=== PATIENT | male | born 1985 | race Caucasian/White ===

== ENCOUNTER 2017-10-27 18:16 | Emergency (ER) | payer SELFPAY ==
[2017-10-27 18:52] VITALS: BP 134/68
--- NOTE | 2017-10-27 19:26 | ER Document Report ---
HPI - HPI Pain Level: 2 Notes: Patient is a 32-year-old male who presents to the ED complaining of nasal congestion/discharge, dry nonproductive cough, fever, body ache 2 days. Patient states that she is still eating and drinking without difficulties, but does have a decreased p.o. intake. He is still urinating normally having normal bowel movements. Patient has been using some [id number] meds for symptoms. He denies any significant past medical history including cardiopulmonary history and immunocompromised conditions. Pt is a smoker, but denies any IV drug use. Patient requesting work note. Denies any headache, neck pain, sore throat, chest pain, palpitations, syncope, shortness of breath, wheeze, dyspnea, abdominal pain, nausea/vomiting/diarrhea, urinary retention, dysuria, hematuria, or rash. - ROS Systems Reviewed and Negative: Yes All other systems reviewed and negative - EENT EENT: REPORTS: Sore Throat - RESPIRATORY Respiratory: REPORTS: Coughing Past Medical History - Social History Smoking Status: Current Every Day Smoker Chew tobacco use (# tins/day): No Frequency of alcohol use: None Drug Abuse: Marijuana Family History: Reviewed & Not Pertinent Patient has suicidal ideation: No Patient has homicidal ideation: No Renal/ Medical History: Denies: Hx Peritoneal Dialysis - Immunizations Hx Diphtheria, Pertussis, Tetanus Vaccination: No Vertical Provider Document - CONSTITUTIONAL Agree With Documented VS: Yes Notes: PHYSICAL EXAMINATION: GENERAL: Well-appearing, well-nourished and in no acute distress. A&Ox4. Answers questions appropriately. Moves comfortably w/o notable distress HEAD: Atraumatic, normocephalic. EYES: Pupils equal round and reactive to light, extraocular movements intact, sclera anicteric, conjunctiva are normal. ENT: EAC clear b/l. TM's intact b/l without erythema, fluid, or perforation. Nares patent and with clear discharge. oropharynx no erythema without exudates. No tonsilar hypertrophy without erythema or exudate. No palatine shift. Uvula midline. No tongue protrusion. No drooling, hoarseness, or airway compromise. Moist mucous membranes. No sinus tenderness. NECK: Normal range of motion, supple without lymphadenopathy. No rigidity/ meningismus. LUNGS: Breath sounds clear to auscultation bilaterally and equal. No wheezes rales or rhonchi. No retractions HEART: Regular rate and rhythm without murmurs, rubs, gallops. ABDOMEN: Soft, nontender, nondistended abdomen. No guarding, no rebound. No masses appreciated. Normal bowel sounds present. No CVA tenderness bilaterally. No hepatosplenomegaly. NEUROLOGICAL: Normal speech, normal gait. Normal sensory, motor exams PSYCH: Normal mood, normal affect. SKIN: Warm, Dry, normal turgor, no rashes or lesions noted. - INFECTION CONTROL TRAVEL OUTSIDE OF THE [place] IN LAST 30 DAYS: No - RESPIRATORY O2 Sat by Pulse Oximetry: 95 Course - Re-evaluation Re-evalutation: 10/27/17 19:32 Patient is an afebrile, well-hydrated, 32-year-old male who presents ED with acute URI, suspect influenza. Vitals are stable. PE is otherwise unremarkable. No labs or imaging warranted at this time based on H&P. Patient has no significant cardiopulmonary or immunocompromised medical conditions. Patient's lungs are clear to auscultation bilaterally without tachycardia, hypoxia, or tachypnea. Patient is tolerating p.o. without any difficulties. I thoroughly reviewed the risks and benefits of the use of Tamiflu, and patient declined due to the cost having no insurance and his previous personal experience from a friend who was on it. Low suspicion for any meningitis, sepsis, peritonsillar/pharyngeal abscess, respiratory compromise, severe dehydration, or other emergent systemic condition at this time. Patient is aware this condition can change from initial presentation and he needs to monitor symptoms closely. Conservative measures otherwise for symptoms. Recheck with your PCM in 3-5 days. Return to the ED with any worsening/ concerning symptoms otherwise as reviewed in discharge. Patient is in agreement. - Vital Signs Vital signs: Temp Pulse Resp BP Pulse Ox 97.7 F 104 H 22 H 134/68 H 95 10/27/17 18:50 10/27/17 18:50 10/27/17 18:50 10/27/17 18:50 10/27/17 18:50 Discharge - Discharge Clinical Impression: Influenza Condition: Stable Disposition: HOME, SELF-CARE Instructions: Influenza ([facility]) Additional Instructions: Maintain adequate fluid intake Take meds as directed tylenol/ibuprofen as needed over the counter cold medication as needed for symptoms Humidified air may help Wash your hands regularly Wear a mask when coughing F/u: with your PCM in 3-5 days for a recheck Return to the ED with any fever, worsening pain, chest pain, palpitations, syncope, worsening WAHL, neck pain/stiffness, shortness of breath, wheezing, drooling, trouble swallowing/breathing, abdominal pain, n/v/d, rash, or worsening/concerning symptoms otherwise. Forms: Elevated Blood Pressure, Smoking Cessation Education, Return to Work Referrals: [facility] [Provider Group] - Follow up as needed [facility] [Provider Group] - Follow up as needed
== END 2017-10-27 19:43 | disposition home or self-care (01) ==
LOC: ER 18:16
DX: J11.1 Influenza due to unidentified influenza virus with other respiratory manifestations (principal); R05 Cough; R50.9 Fever, unspecified; F17.200 Nicotine dependence, unspecified, uncomplicated
CPT/HCPCS: 99283

== ENCOUNTER 2018-03-16 23:54 | Inpatient (IN) | payer SELFPAY ==
[2018-03-17] MEDS ORDERED: ONDANSETRON 4 MG TAB.RAPDIS PO ONE (01:10)
[2018-03-17] MEDS ORDERED: DIAZEPAM INJ 10 MG/2 ML DISP.SYRIN IV ONE ×2 (01:10→01:54)
[2018-03-17] MEDS ORDERED: NORMAL SALINE 1000 ML 2,000 ML IV ONE (01:10)
--- NOTE | 2018-03-17 01:13 | ER Document Report ---
ED Medical Screen (RME) - General Chief Complaint: Nausea/Vomiting Stated Complaint: VOMITING,CRAMPING Time Seen by Provider: 03/17/18 01:04 Mode of Arrival: Ambulatory Information source: Patient Notes: Patient states that that he was working out in the heat all day and started to become dizzy at work. Patient states that he passed out while at work around 4 PM today. Patient reports nausea and vomiting, vomiting multiple episodes today. Patient complains of hot and cold chills. Patient complains of generalized body aches and muscle cramps. I have greeted and performed a rapid initial assessment of this patient. A comprehensive ED assessment and evaluation of the patient, analysis of test results and completion of the medical decision making process will be conducted by additional ED providers. TRAVEL OUTSIDE OF THE [place] IN LAST 30 DAYS: No - Related Data Allergies/Adverse Reactions: No Known Allergies Allergy (Verified 03/16/18 23:55) Past Medical History Renal/ Medical History: Denies: Hx Peritoneal Dialysis - Immunizations Hx Diphtheria, Pertussis, Tetanus Vaccination: No Physical Exam - Vital signs Vitals: Temp Pulse Resp BP Pulse Ox 97.9 F 84 20 132/81 H 97 03/16/18 23:58 03/16/18 23:58 03/16/18 23:58 03/16/18 23:58 03/16/18 23:58 - General General appearance: Appears well, Alert In distress: Mild Notes: Patient with tenderness generalized body worse to bilateral thigh muscles Course - Vital Signs Vital signs: Temp Pulse Resp BP Pulse Ox 97.9 F 84 20 132/81 H 97 03/16/18 23:58 03/16/18 23:58 03/16/18 23:58 03/16/18 23:58 03/16/18 23:58
--- NOTE | 2018-03-17 01:49 | ER Document Report ---
ED General - General Chief Complaint: Nausea/Vomiting Stated Complaint: VOMITING,CRAMPING Time Seen by Provider: 03/17/18 01:04 Mode of Arrival: Ambulatory Notes: Patient is a 32-year-old male who presents with complaint of feeling dehydrated and having cramping throughout his muscles. Patient says he works in a hot environment and started feel very lightheaded and dehydrated and start vomiting and did pass out. He said he never had a headache. Denies any chest pain or shortness of breath. He says throughout the day he has been having cramping in his muscles. He continues have some vomiting therefore came to the ER. He did titrate and drink the Pedialyte at home but vomited it. He denies any current abdominal pain. Denies any recent sick contacts. Denies any fevers. TRAVEL OUTSIDE OF THE [place] IN LAST 30 DAYS: No - Related Data Allergies/Adverse Reactions: No Known Allergies Allergy (Verified 03/16/18 23:55) Past Medical History - General Information source: Patient - Social History Smoking Status: Never Smoker Frequency of alcohol use: None Drug Abuse: Marijuana Family History: Reviewed & Not Pertinent Renal/ Medical History: Denies: Hx Peritoneal Dialysis - Immunizations Hx Diphtheria, Pertussis, Tetanus Vaccination: No Review of Systems - Review of Systems Notes: My Normal Review Basic REVIEW OF SYSTEMS: CONSTITUTIONAL : Denies fever, chills, or sweats. Denies recent illness. EENT: Denies eye, ear, throat, or mouth pain or symptoms. Denies nasal or sinus congestion. CARDIOVASCULAR: Denies chest pain. RESPIRATORY: Denies cough, cold, or chest congestion. Denies shortness of breath, difficulty breathing, or wheezing. GASTROINTESTINAL: Denies abdominal pain. Vomiting GENITOURINARY: Denies difficulty urinating, painful urination, burning, frequency, or blood in urine. MUSCULOSKELETAL: Body aches and muscle cramps SKIN: Denies rash or skin lesions. NEUROLOGICAL: Syncopal episode. Denies headache. Denies weakness or paralysis or loss of use of either side. Denies problems with gait or speech. Denies sensory or motor loss. ALL OTHER SYSTEMS REVIEWED AND NEGATIVE. Physical Exam - Vital signs Vitals: Temp Pulse Resp BP Pulse Ox 97.9 F 84 20 132/81 H 97 03/16/18 23:58 03/16/18 23:58 03/16/18 23:58 03/16/18 23:58 03/16/18 23:58 - Notes Notes: General Appearance: Well nourished, alert, cooperative, no acute distress, no obvious discomfort. Vitals: reviewed, See vital signs table. Head: no swelling or tenderness to the head Eyes: PERRL, EOMI, Conjuctiva clear Mouth: No decreasd moisture Lungs: No wheezing, No rales, No rhonci, No accessory muscle use, good air exchange bilaterally. Heart: Normal rate, Regular rythm, No murmur, no rub Abdomen: Normal BS, soft, No rigidity, No abdominal tenderness, No guarding, no rebound, no abdominal masses, no organomegaly Extremities: strength 5/5 in all extremities, good pulses in all extremities, no swelling or tenderness in the extremities, no edema. Skin: warm, dry, appropriate color, no rash Neuro: speech clear, oriented x 3, normal affect, responds appropriately to questions. Course - Re-evaluation Re-evalutation: 03/17/18 03:08 Patient has acute renal failure from what appears to be dehydration. He is currently receiving IV fluids. His elevated protein his chemistry panel. He has what appears to be hemoconcentration with leukocytosis with CBC. Due to his acute renal failure I think is appropriate to admit him with IV fluids to make sure his renal function returns to normal. Patient is agreeable to this. I did speak with the hospitalist, Dr. Amador, who agrees to admit the patient. Dictation of this chart was performed using voice recognition software; therefore, there may be some unintended grammatical errors. - Vital Signs Vital signs: Temp Pulse Resp BP Pulse Ox 97.9 F 84 20 132/81 H 97 03/16/18 23:58 03/16/18 23:58 03/16/18 23:58 03/16/18 23:58 03/16/18 23:58 - Laboratory Result Diagrams: 03/17/18 02:02 03/17/18 02:02 Laboratory results interpreted by me: 03/17/18 03/17/18 02:02 02:02 WBC 23.4 H RBC 5.96 H Hgb 18.1 H Hct 51.4 H RDW 14.1 H Seg Neuts % (Manual) 94 H Lymphocytes % (Manual) 1 L Abs Neuts (Manual) 22.0 H Abs Lymphs (Manual) 0.2 L Chloride 91 L Anion Gap 26 H BUN 27 H Creatinine 3.77 H Est GFR ( Amer) 23 L Est GFR (Non-Af Amer) 19 L Glucose 147 H Calcium 11.6 H Direct Bilirubin 0.7 H Creatine Kinase 481 H Total Protein 10.4 H Albumin > 6.0 H - EKG Interpretation by Me Additional EKG results interpreted by me: 03/17/18 01:48 EKG is reviewed and interpreted by me. EKG shows sinus rhythm with a rate of [address] segment elevation or depression. No ischemic T-wave inversions. [place] interval is within normal range. QRS duration and QTc intervals are slightly prolonged. Discharge - Discharge Clinical Impression: Dehydration Acute renal failure Qualifiers: Acute renal failure type: unspecified Qualified Code(s): N17.9 - Acute kidney failure, unspecified Leukocytosis Qualifiers: Leukocytosis type: unspecified Qualified Code(s): D72.829 - Elevated white blood cell count, unspecified Condition: Stable Disposition: ADMITTED OBSERVATION Admitting Provider: Hospitalist Unit Admitted: Medical Floor
[2018-03-17 02:19] LABS: HEMATOCRIT 51.4 % (37.9-51.0); HEMOGLOBIN 18.1 g/dL (13.5-17.0); MEAN CORPUSCULAR HEMOGLOBIN 30.3 pg (27.0-33.4); MEAN CORPUSCULAR HGB CONC 35.2 g/dL (32.0-36.0); MEAN CORPUSCULAR VOLUME 86 fl (80-97); PLATELET COUNT 434 10^3/uL (150-450); RED BLOOD COUNT 5.96 10^6/uL (4.35-5.55); RED CELL DISTRIBUTION WIDTH 14.1 % (11.5-14.0); WHITE BLOOD COUNT 23.4 10^3/uL (4.0-10.5)
[2018-03-17 02:22] LABS: ALANINE AMINOTRANSFERASE 42 U/L (21-72); ALKALINE PHOSPHATASE 103 U/L (38-126); ASPARTATE AMINO TRANSFERASE 37 U/L (17-59); BILIRUBIN,DIRECT 0.7 mg/dL (0.0-0.4); BILIRUBIN,TOTAL 1.3 mg/dL (0.2-1.3); BLOOD UREA NITROGEN 27 mg/dL (7-20); CALCIUM 11.6 mg/dL (8.4-10.2); CARBON DIOXIDE 26 mmol/L (22-30); CREATINE KINASE 481 U/L (55-170); GLUCOSE 147 mg/dL (75-110); POTASSIUM 4.2 mmol/L (3.6-5.0)
[2018-03-17 02:28] LABS: CHLORIDE 91 mmol/L (98-107); SODIUM 142.5 mmol/L (137-145)
[2018-03-17 02:29] LABS: ANION GAP 26 (5-19)
[2018-03-17 02:32] LABS: TOTAL PROTEIN 10.4 g/dL (6.3-8.2)
[2018-03-17 02:36] LABS: ABSOLUTE LYMPHOCYTES# (MANUAL) 0.2 10^3/uL (0.5-4.7); ABSOLUTE MONOCYTES # (MANUAL) 1.2 10^3/uL (0.1-1.4); BASOPHILS % (MANUAL) 0 % (0-2); EOSINOPHILS % (MANUAL) 0 % (0-6); LYMPHOCYTES % (MANUAL) 1 % (13-45); MONOCYTES % (MANUAL) 5 % (3-13); PLATELET CLUMPS PRESENT; PLATELET COMMENT ADEQUATE; SEGMENTED NEUTROPHILS % (MAN) 94 % (42-78); TOTAL CELLS COUNTED 100
[2018-03-17 02:37] LABS: RBC MORPHOLOGY COMMENT NORMO-CYTIC/CHROMIC
[2018-03-17 03:08] LABS: ALBUMIN 5.8 g/dL (3.5-5.0)
[2018-03-17] MEDS ORDERED: ACETAMINOPHEN 325 MG TABLET PO PRN (03:14)
[2018-03-17] MEDS ORDERED: IPRATROPIUM/ALBUTEROL 0.5-2.5 MG/3 ML AMPUL NEB PRN (03:14)
[2018-03-17] MEDS ORDERED: MAG HYDROX/AL HYDROX/SIMETH SUSP 30 ML UDCUP PO PRN (03:14)
[2018-03-17] MEDS: HEPARIN SOD (PORCINE) 5,000 UNIT/ML 1 ML SYRINGE SUBCUT SCH ×3 (05:06→21:00)
[2018-03-17] MEDS: NORMAL SALINE 1000 ML 1,000 ML IV SCH ×3 (05:06→10:04)
--- NOTE | 2018-03-17 06:02 | PDOC H&P ---
History of Present Illness Admission Date/PCP: 03/17/18 03:28 Patient complains of: Nausea vomiting History of Present Illness: DEVANG ALLEN is a 32 year old male without past medical history who presents with 4 hours of nausea with vomiting of gastric content, muscle cramping and prolonged heat exposure. 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 In the emergency room is found to have a leukocytosis of 23,000, acute renal failure with a creatinine of 3.7 and a total CK of 41. He denies a history of renal failure, fever chills, acute febrile illness. He denies previous episode of heat exhaustion. He started on IV fluids and referred to the hospitalist for admission. Past Medical History Medical History: None Past Surgical History Past Surgical History: Reports: None Social History Information Source: Patient Lives with: Family Smoking Status: Never Smoker Frequency of Alcohol Use: Rare Hx Recreational Drug Use: No Drugs: None Hx Prescription Drug Abuse: No - Advance Directive Resuscitation Status: Full Code Family History Family History: None Parental Family History Reviewed: Yes Children Family History Reviewed: Yes Sibling(s) Family History Reviewed.: Yes Medication/Allergy Home Medications: No Home Medications 10/27/17 Allergies/Adverse Reactions: No Known Allergies Allergy (Verified 03/16/18 23:55) Review of Systems Constitutional: ABSENT: chills, fever(s), headache(s), weight gain, weight loss Eyes: ABSENT: visual disturbances Ears: ABSENT: hearing changes Cardiovascular: ABSENT: chest pain, dyspnea on exertion, edema, orthropnea, palpitations Respiratory: ABSENT: cough, hemoptysis Gastrointestinal: ABSENT: abdominal pain, constipation, diarrhea, hematemesis, hematochezia, nausea, vomiting Genitourinary: ABSENT: dysuria, hematuria Musculoskeletal: ABSENT: joint swelling Integumentary: ABSENT: rash, wounds Neurological: ABSENT: abnormal gait, abnormal speech, confusion, dizziness, focal weakness, syncope Psychiatric: ABSENT: anxiety, depression, homidical ideation, suicidal ideation Endocrine: ABSENT: cold intolerance, heat intolerance, polydipsia, polyuria Hematologic/Lymphatic: ABSENT: easy bleeding, easy bruising Physical Exam Vital Signs: Temp Pulse Resp BP Pulse Ox 97.9 F 84 20 132/81 H 97 03/16/18 23:58 06/28/18 23:58 03/16/18 23:58 03/16/18 23:58 03/16/18 23:58 General appearance: PRESENT: no acute distress, well-developed, well-nourished Head exam: PRESENT: atraumatic, normocephalic Eye exam: PRESENT: conjunctiva pink, EOMI, PERRLA. ABSENT: scleral icterus Ear exam: PRESENT: normal external ear exam Mouth exam: PRESENT: moist, tongue midline Neck exam: ABSENT: carotid bruit, JVD, lymphadenopathy, thyromegaly Respiratory exam: PRESENT: clear to auscultation cassie. ABSENT: rales, rhonchi, wheezes Cardiovascular exam: PRESENT: RRR. ABSENT: diastolic murmur, rubs, systolic murmur Pulses: PRESENT: normal dorsalis pedis pul Vascular exam: PRESENT: normal capillary refill GI/Abdominal exam: PRESENT: normal bowel sounds, soft. ABSENT: distended, guarding, mass, organolmegaly, rebound, tenderness Rectal exam: PRESENT: deferred Extremities exam: PRESENT: full ROM. ABSENT: calf tenderness, clubbing, pedal edema Neurological exam: PRESENT: alert, awake, oriented to person, oriented to place , oriented to time, oriented to situation, CN II-XII grossly intact. ABSENT: motor sensory deficit Psychiatric exam: PRESENT: appropriate affect, normal mood. ABSENT: homicidal ideation, suicidal ideation Skin exam: PRESENT: dry, intact, warm. ABSENT: cyanosis, rash Assessment & Plan - Diagnosis (1) Acute renal failure Qualifiers: Acute renal failure type: unspecified Qualified Code(s): N17.9 - Acute kidney failure, unspecified Is this a current diagnosis for this admission?: Yes Plan: Multifactorial secondary to dehydration, Aleve and rhabdomyolysis. Avoid nephrotoxic meds and doses IV fluid challenge, follow-up chemistry and urinalysis. Consider nephrology consult. (2) Rhabdomyolysis Is this a current diagnosis for this admission?: Yes Plan: Secondary to exceptional physical exertion. IV fluid challenge, follow-up total CK and chemistry (3) Dehydration Is this a current diagnosis for this admission?: Yes Plan: IV fluid challenge, education, energy drink avoidance (4) Leukocytosis Qualifiers: Leukocytosis type: unspecified Qualified Code(s): D72.829 - Elevated white blood cell count, unspecified Is this a current diagnosis for this admission?: Yes Plan: Likely a stress response, follow-up CBC - Time Time Spent: 50 to 70 Minutes - Inpatient Certification Medical Necessity: Need Close Monitoring Due to Risk of Patient Decompensation
[2018-03-17 08:25] LABS: ABSOLUTE LYMPHOCYTES (AUTO) 1.6 10^3/uL (0.5-4.7); ABSOLUTE MONOCYTES (AUTO) 1.1 10^3/uL (0.1-1.4); BASOPHILS % (AUTO) 0.2 % (0-2); HEMATOCRIT 44.6 % (37.9-51.0); LYMPHOCYTES % (AUTO) 8.6 % (13-45); MEAN CORPUSCULAR HEMOGLOBIN 29.8 pg (27.0-33.4); MEAN CORPUSCULAR HGB CONC 34.9 g/dL (32.0-36.0); MEAN CORPUSCULAR VOLUME 85 fl (80-97); MONOCYTES % (AUTO) 5.8 % (3-13); PLATELET COUNT 358 10^3/uL (150-450); RED BLOOD COUNT 5.23 10^6/uL (4.35-5.55); SEGMENTED NEUTROPHILS % (AUTO) 85.4 % (42-78); TOTAL CELLS COUNTED % (AUTO) 100 %; WHITE BLOOD COUNT 18.7 10^3/uL (4.0-10.5)
[2018-03-17 08:27] LABS: HEMOGLOBIN 15.6 g/dL (13.5-17.0)
[2018-03-17] MEDS: DOCUSATE SODIUM 100 MG CAPSULE PO SCH ×2 (09:34→16:20)
[2018-03-17 12:41] LABS: APPEARANCE,URINE CLOUDY; BILIRUBIN,URINE NEGATIVE (NEGATIVE); COLOR,URINE YELLOW; GLUCOSE, URINE 50 mg/dL (NEGATIVE); KETONES,URINE TRACE mg/dL (NEGATIVE); LEUKOCYTE ESTERASE,URINE NEGATIVE (NEGATIVE); NITRITE,URINE NEGATIVE (NEGATIVE); PROTEIN,URINE 100 mg/dL (NEGATIVE); UROBILINOGEN,URINE NEGATIVE mg/dL (<2.0)
[2018-03-17 12:58] LABS: URINE AMPHETAMINES SCREEN NEGATIVE; URINE BARBITURATES SCREEN NEGATIVE; URINE BENZODIAZEPINES SCREEN UNCONFIRMED POSITIVE; URINE COCAINE SCREEN NEGATIVE; URINE MARIJUANA (THC) SCREEN UNCONFIRMED POSITIVE; URINE METHADONE SCREEN NEGATIVE; URINE PHENCYCLIDINE SCREEN NEGATIVE
--- NOTE | 2018-03-18 00:17 | EKG REPORT ---
SEVERITY:- ABNORMAL ECG - SINUS OR ECTOPIC ATRIAL RHYTHM ATRIAL PREMATURE COMPLEX LEFT ATRIAL ABNORMALITY NONSPECIFIC IVCD WITH LAD : Confirmed by: Awilda Sewell MD 18-Mar-2018 00:16:27
[2018-03-18 04:58] LABS: ABSOLUTE EOSINOPHILS # (AUTO) 0.1 10^3/uL (0.0-0.6); ABSOLUTE LYMPHOCYTES (AUTO) 2.5 10^3/uL (0.5-4.7); ABSOLUTE MONOCYTES (AUTO) 0.8 10^3/uL (0.1-1.4); BASOPHILS % (AUTO) 0.4 % (0-2); EOSINOPHILS % (AUTO) 0.9 % (0-6); HEMATOCRIT 41.5 % (37.9-51.0); HEMOGLOBIN 14.4 g/dL (13.5-17.0); LYMPHOCYTES % (AUTO) 24.1 % (13-45); MEAN CORPUSCULAR HEMOGLOBIN 30.2 pg (27.0-33.4); MEAN CORPUSCULAR HGB CONC 34.6 g/dL (32.0-36.0); MEAN CORPUSCULAR VOLUME 87 fl (80-97); MONOCYTES % (AUTO) 7.4 % (3-13); PLATELET COUNT 282 10^3/uL (150-450); RED BLOOD COUNT 4.76 10^6/uL (4.35-5.55); RED CELL DISTRIBUTION WIDTH 13.8 % (11.5-14.0); SEGMENTED NEUTROPHILS % (AUTO) 67.2 % (42-78); TOTAL CELLS COUNTED % (AUTO) 100 %; WHITE BLOOD COUNT 10.4 10^3/uL (4.0-10.5)
[2018-03-18] MEDS: HEPARIN SOD (PORCINE) 5,000 UNIT/ML 1 ML SYRINGE SUBCUT SCH (05:08)
[2018-03-18 05:12] LABS: ANION GAP 11 (5-19); BLOOD UREA NITROGEN 22 mg/dL (7-20); CALCIUM 9.2 mg/dL (8.4-10.2); CARBON DIOXIDE 28 mmol/L (22-30); CHLORIDE 106 mmol/L (98-107); GLUCOSE 81 mg/dL (75-110); POTASSIUM 4.1 mmol/L (3.6-5.0); SODIUM 144.8 mmol/L (137-145)
[2018-03-18] MEDS ORDERED: NORMAL SALINE 1000 ML 1,000 ML IV ONE (07:53)
[2018-03-18] MEDS ORDERED: NORMAL SALINE 1000 ML 1,000 ML IV PRN (07:53)
[2018-03-18] MEDS: DOCUSATE SODIUM 100 MG CAPSULE PO SCH (10:41)
[2018-03-18 11:52] VITALS: BP 113/71
--- NOTE | 2018-03-23 07:40 | PDOC DISCHARGE SUMMARY ---
General - Admit/Disc Date/PCP Admission Date/Primary Care Provider: 03/17/18 03:28 Discharge Date: 03/18/18 - Discharge Diagnosis (1) Acute renal failure Is this a current diagnosis for this admission?: Yes (2) Dehydration Is this a current diagnosis for this admission?: Yes (3) Rhabdomyolysis Is this a current diagnosis for this admission?: Yes - Additional Information Resuscitation Status: Full Code Discharge Diet: As Tolerated Discharge Activity: Activity As Tolerated Home Medications: No Home Medications 03/17/18 History of Present Illness History of Present Illness: Per Dr. Amador: DEVANG ALLEN is a 32 year old male without past medical history who presents with 4 hours of nausea with vomiting of gastric content, muscle cramping and prolonged heat exposure. 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 In the emergency room is found to have a leukocytosis of 23,000, acute renal failure with a creatinine of 3.7 and a total CK of 41. He denies a history of renal failure, fever chills, acute febrile illness. He denies previous episode of heat exhaustion. He started on IV fluids and referred to the hospitalist for admission. Hospital Course Hospital Course: 32-year-old male admitted to the hospital for acute renal failure and rhabdomyolysis stemming from dehydration. Initial Cr 3.77 CK 485 WBC 23.4. No evidence of infection, the patient was afebrile. He was treated with aggressive IVF resuscitation in the ED (approx. 4-5L NS boluses) and continued on maintenance IVF. His CK peaked at 1200. Cr had returned to 0.8 by the next morning. The patient reported no difficulty urinating. Leukocytosis had resolved. The likely culprit of the patient's ARF was significant dehydration. He reportedly was working outside in the heat, "rehydrating" with energy drinks, followed by NSAID use. 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 Additionally, he was counseled on the appropriate kinds of beverages to consume when hydrating (water vs. caffeinated drinks). The patient stated understanding of these instructions. He was safely discharged home following approximately 24 hours in the hospital. Physical Exam Vital Signs: Temp Pulse Resp BP Pulse Ox 98.4 F 70 15 113/71 99 06/30/18 12:43 03/18/18 12:43 03/18/18 12:43 03/18/18 12:43 03/18/18 12:43 Results Laboratory Results: 03/18/18 04:10 03/18/18 04:10 03/17/18 03/17/18 03/17/18 08:03 14:06 20:30 Creatine Kinase 832 H 1008 H 1295 H 03/18/18 04:10 Creatine Kinase 1100 H Status: Imported from PACS Qualifiers - * PATIENT BEING DISCHARGED WITH ANY OF THE FOLLOWING DIAGNOSIS: No Plan Time Spent: Less than 30 Minutes
== END 2018-03-18 12:52 | disposition home or self-care (01) | DRG 683 ==
LOC: ER 23:54 → EH 03-17 03:28 → OBSVTOIN 03-17 03:28 → 5 03-17 12:06
PROVIDERS: ADMIT Internal Medicine; ATTEND Internal Medicine
DX: N17.9 Acute kidney failure, unspecified (principal); M62.82 Rhabdomyolysis; E86.0 Dehydration; D72.829 Elevated white blood cell count, unspecified
CPT/HCPCS: 36415; 80048; 80053; 80307; 81001; 82550; 83735; 84443; 85025; 93005; 93010; 96361; 96374; 99285; J3360; J7030; S0119